=== PATIENT | female | born 1970 | race Two or more races ===

== ENCOUNTER 2020-07-11 11:10 | Emergency (ER) | payer OTHER ==
[~2020-07-11] VITALS: Ht 177.8 cm; Wt 71.7 kg
[2020-07-11 11:21] VITALS: BP 148/93
--- NOTE | 2020-07-11 11:40 | NUR ---
PT AMBULATED TO BR, CHANGED INTO GOWN. MONITORS IN PLACE. NAD, NO NEEDS AT THIS TIME
[2020-07-11 12:06] LABS: ALBUMIN 3.1 g/dL (3.4-5.0); ANION GAP 7 mmol/L (5-15); BASOPHILS % (AUTO) 1 % (0-1); CALCIUM 8.7 mg/dL (8.5-10.1); CHLORIDE 110 mmol/L (98-107); CREATININE 0.63 mg/dL (0.55-1.02); EOSINOPHILS % (AUTO) 1 % (1-7); LYMPHOCYTES % (AUTO) 30 % (22-44); MEAN CORPUSCULAR HEMOGLOBIN 30.9 pg (27.0-34.8); MEAN CORPUSCULAR HGB CONC 33.7 g/dL (32.4-35.8); MEAN PLATELET VOLUME 7.5 fL (7.4-10.4); MONOCYTES % (AUTO) 7 % (2-9); NEUTROPHILS % (AUTO) 60 % (42-75); PLATELET COUNT 252 x10^3/uL (130-400); RED BLOOD COUNT 4.31 x10^6/uL (3.82-5.3); RED CELL DISTRIBUTION WIDTH 13.4 % (9.6-15.2)
[2020-07-11 12:10] LABS: ALKALINE PHOSPHATASE 58 U/L (45-117); BILIRUBIN,TOTAL 0.3 mg/dL (0.2-1.0); MD NO; TOTAL PROTEIN 6.6 g/dL (6.4-8.2); TROPONIN I < 0.015 ng/mL (0.000-0.045)
[2020-07-11 12:13] LABS: ALANINE AMINOTRANSFERASE 18 U/L (12-78)
--- NOTE | 2020-07-11 12:43 | NUR ---
Patient given discharge instructions and they have confirmed that they understand the instructions. Patient ambulatory with steady gait.
== END 2020-07-11 12:45 | disposition home or self-care (01) ==
LOC: ED 12:05
DX: I10 Essential (primary) hypertension (principal); R42 Dizziness and giddiness; R51.9 Headache, unspecified; R11.0 Nausea; R07.89 Other chest pain; Z85.3 Personal history of malignant neoplasm of breast; Z76.0 Encounter for issue of repeat prescription
CPT/HCPCS: 36415; 71045; 80053; 84484; 85025; 93005; 99285